=== PATIENT | male | born 1950 | race Two or more races ===

== ENCOUNTER 2018-05-10 20:29 | Emergency (ER) | payer MEDICAID ==
[~2018-05-10] VITALS: Ht 175.3 cm; Wt 82.6 kg
--- NOTE | 2018-05-10 20:35 | NUR ---
PT BIB SELF. COMP OF HAVING "SORE THROAT" FOR 2 DAYS. NO SOB NOTED. NO ACUTE DISTRESS AT THIS TIME. PT AOX4. AMBULATORY W.STEADY GAIT. AWAITING MD TORRES.
--- NOTE | 2018-05-10 21:00 | NUR ---
RADIO AT BEDSIDE.
[2018-05-10 21:20] VITALS: BP 112/68
--- NOTE | 2018-05-10 22:45 | NUR ---
Patient discharged to home in stable condition. Written and verbal after care instructions given. Patient verbalizes understanding of instruction.
== END 2018-05-10 22:46 | disposition home or self-care (01) ==
LOC: ER 20:32
DX: J22 Unspecified acute lower respiratory infection (principal); Z85.46 Personal history of malignant neoplasm of prostate; Z98.890 Other specified postprocedural states
CPT/HCPCS: 71045; 87804 ×2; 99284; A4606; Z7610; 87400